=== PATIENT | female | born 1960 | race Caucasian/White ===

== ENCOUNTER → 2017-03-15 | Outpatient (CLI) | payer OTHER | LOC: KOH-I 13:09 | DX: M54.9 Dorsalgia, unspecified (principal); M47.898 Other spondylosis, sacral and sacrococcygeal region | CPT/HCPCS: 72202 ==

== ENCOUNTER 2021-02-28 12:55 | Emergency (ER) | payer OTHER ==
[2021-02-28 14:06] LABS: HEMOGLOBIN 12.3 gm/dl (12.3-15.3); RED BLOOD COUNT 4.21 M/UL (4.00-5.10); WHITE BLOOD COUNT 6.2 K/UL (4.5-11.0)
[2021-02-28 14:24] LABS: BUN/CREATININE RATIO 20 (0-10)
[2021-02-28] MEDS ORDERED: ACYCLOVIR800 MG PO (15:30)
[2021-02-28] MEDS ORDERED: PREDNISONE 20 M20 MG PO (15:30)
== END 2021-02-28 16:26 | disposition home or self-care (01) ==
LOC: ER1 12:55
PROVIDERS: Physician Assistant Medical
DX: B02.9 Zoster without complications (principal); I10 Essential (primary) hypertension; E03.9 Hypothyroidism, unspecified; Z90.49 Acquired absence of other specified parts of digestive tract; Z90.710 Acquired absence of both cervix and uterus; Z88.5 Allergy status to narcotic agent; Z88.1 Allergy status to other antibiotic agents; Z88.0 Allergy status to penicillin; Z79.899 Other long term (current) drug therapy
CPT/HCPCS: 80053; 81001; 83605; 85025; 85652; 86140; 87040; 87086; 96374; 96375; 99283; J1885; J2405

== ENCOUNTER 2021-03-20 18:15 | Emergency (ER) | payer OTHER ==
[~2021-03-20 18:15] MED LIST: ACYCLOVIR800 MG PO; PREDNISONE 20 M20 MG PO
[2021-03-20 21:25] LABS: HEMOGLOBIN 13.3 gm/dl (12.3-15.3); RED BLOOD COUNT 4.58 M/UL (4.00-5.10); WHITE BLOOD COUNT 9.6 K/UL (4.5-11.0)
[2021-03-20 21:46] LABS: BUN/CREATININE RATIO 17 (0-10)
[2021-03-20] MEDS ORDERED: CEPHALEXIN500 MG PO (22:25)
[2021-03-20] MEDS ORDERED: VIBRAMYCIN 100100 MG PO (22:25)
== END 2021-03-21 01:35 | disposition home or self-care (01) ==
LOC: ER1 18:15
PROVIDERS: Physician Assistant
DX: L02.214 Cutaneous abscess of groin (principal); Z90.49 Acquired absence of other specified parts of digestive tract; Z90.710 Acquired absence of both cervix and uterus; Z88.0 Allergy status to penicillin; Z88.2 Allergy status to sulfonamides; Z88.5 Allergy status to narcotic agent
CPT/HCPCS: 10060; 80053; 83605; 85025; 85652; 86140; 96365; 99283

== ENCOUNTER 2021-09-19 16:49 | Inpatient (IN) | payer OTHER ==
[~2021-09-19] VITALS: Ht 160 cm; Wt 110.4 kg
[~2021-09-19 16:49] MED LIST changes: +CEPHALEXIN500 MG PO; +VIBRAMYCIN 100100 MG PO
[2021-09-19 18:02] LABS: HEMOGLOBIN 14.4 gm/dl (12.3-15.3); RED BLOOD COUNT 4.99 M/UL (4.00-5.10); WHITE BLOOD COUNT 8.8 K/UL (4.5-11.0)
[2021-09-19 18:31] LABS: BUN/CREATININE RATIO 13 (0-10)
[2021-09-19] MEDS ORDERED: CELEXA 20MG TAB20 MG PO (23:41)
[2021-09-19] MEDS ORDERED: ATORVASTATIN CA20 MG PO (23:42)
[2021-09-19] MEDS ORDERED: ROBAXIN 750 MG750 MG PO (23:43)
[2021-09-19] MEDS ORDERED: LEVOTHYROXINE150 MCG PO (23:44)
[2021-09-20 03:36] LABS: HEMOGLOBIN 12.6 gm/dl (12.3-15.3)
[2021-09-20 03:40] LABS: RED BLOOD COUNT 4.39 M/UL (4.00-5.10); WHITE BLOOD COUNT 6.3 K/UL (4.5-11.0)
[2021-09-20 03:58] LABS: BUN/CREATININE RATIO 13 (0-10)
[2021-09-21 04:02] LABS: HEMOGLOBIN 12.1 gm/dl (12.3-15.3); RED BLOOD COUNT 4.19 M/UL (4.00-5.10); WHITE BLOOD COUNT 7.5 K/UL (4.5-11.0)
[2021-09-21 05:14] LABS: BUN/CREATININE RATIO 22 (0-10)
[2021-09-21] MEDS ORDERED: LOPRESSOR 25 MG25 MG PO (11:11)
[2021-09-21] MEDS ORDERED: ASPIRIN EC81 MG PO (11:11)
[2021-09-21] MEDS ORDERED: ATORVASTATIN CA20 MG PO (11:11)
[2021-09-21] MEDS ORDERED: BRILINTA 90 MG90 MG PO (11:11)
== END 2021-09-21 13:06 | disposition home or self-care (01) | DRG 247 ==
LOC: ER1 16:49 → CDU 18:42 → PROG CARE 18:42
PROVIDERS: Family Medicine; ADMIT Internal Medicine
PROC: 027034Z Dilation of Coronary Artery, One Artery with Drug-eluting Intraluminal Device, Percutaneous Approach (ICD-10-PCS; principal; 2021-09-20)
PROC: B240ZZ3 Ultrasonography of Single Coronary Artery, Intravascular (ICD-10-PCS; 2021-09-20)
PROC: B24BZZZ Ultrasonography of Heart with Aorta (ICD-10-PCS; 2021-09-20)
DX: I21.4 Non-ST elevation (NSTEMI) myocardial infarction (principal); Z20.822 Contact with and (suspected) exposure to COVID-19; E03.9 Hypothyroidism, unspecified; C55 Malignant neoplasm of uterus, part unspecified; I83.90 Asymptomatic varicose veins of unspecified lower extremity; E87.6 Hypokalemia; M79.7 Fibromyalgia; I20.0 Unstable angina; E78.5 Hyperlipidemia, unspecified; I08.1 Rheumatic disorders of both mitral and tricuspid valves; Z79.82 Long term (current) use of aspirin; Z88.5 Allergy status to narcotic agent; Z88.0 Allergy status to penicillin; Z91.012 Allergy to eggs; Z90.49 Acquired absence of other specified parts of digestive tract; Z82.49 Family history of ischemic heart disease and other diseases of the circulatory system; Z90.710 Acquired absence of both cervix and uterus; Z98.51 Tubal ligation status
CPT/HCPCS: ECHO; 36415; 71045; 71275; 80048; 80053; 80061; 82550; 82553; 83540; 83550; 83605; 83735; 83874; 83880; 84100; 84439; 84443; 84484; 85025; 85027; 85347; 85379; 85652; 86140; 92978; 93005; 93306; 99152; 99153; 99285; C1725; C1753; C1769; C1874; C1887; C1894; C9600; J0360; J0461; J1644; J1650; J2250; J3010; J7030; J7040; Q9967; U0002